=== PATIENT | female | born 1935 | race Caucasian/White ===

== ENCOUNTER 2016-04-07 17:51 | Emergency (ER) | payer MEDICARE, MEDICAID ==
[~2016-04-07] VITALS: Ht 170.2 cm; Wt 105.7 kg
[~2016-04-07 17:51] MED LIST: HYDROCODONE/ACE1 TA5 PO; LEVOTHYROXIN0.125 MG PO; LISINOPRIL2.5 MG PO; PRILOSEC20 M1 PO; XANAX 0.25MG0.25 MG PO
--- NOTE | 2016-04-07 18:05 | Emergency Room Report ---
History of Present Illness Time Seen by 180 Presenting Problem in Triage Pt arrived:Walked Presenting Problem:PT REPORTS SHE THINKS SHE HAS 4 BLOOD CLOTS IN R UPPER LEG. PT STATES HAS HX OF DVT AND SVT. Onset of symptoms date/time:04/04/16/ or onset unknown for:MEDICAL HX UNKNOWN Treatment Prior to Arrival: [employer] Provided by: Sepsis Risk Assessment: Temp: 97.9 B/P: 159/81 MAP: 107 Pulse: 61 Resp: 18 Recent fever? N Clinical Suspician of Infection? N Mental Status: 1 - Regular (Normal Baseline) Sepsis Risk:Low Sepsis Risk Have you (or family members/close friends) recently traveled outside the [place]? N If Yes, where/when: Have you had exposure to infectious disease within the past month? N TB? Other? Specify: Comment The patient complains of painful red lumps on her RIGHT anterior and medial thigh for the past couple of days. She says she has a history of blood clots. She thinks she has had both superficial and deep venous thromboses. She has no chest pain or shortness of breath. She called her PCP and they advised her to come to the emergency department. Her only current blood thinners aspirin. She says she just recently had blood drawn by her PCP in the past couple of weeks and her kidney function and liver function are normal. She says her platelet count was slightly low at 136. No history of reaction to heparin. ALLERGIES Coded Allergies: buspirone (From BuSpar) (Severe, SUICIDAL IDEATION 01/21/15) prednisone (Severe, INTERNAL ORGANOMEGALY 01/21/15) propoxyphene (From Darvocet-N) (Severe, RESPIRATORY DEPRESSION 01/21/15) tramadol (Severe, SEVERE WITHDRAWAL 01/21/15) Penicillins (Intermediate, I-HIVES 01/21/15) adhesive (Intermediate, I-RASH 01/21/15) bupropion (From Wellbutrin) (Intermediate, DEPRESSION 01/21/15) codeine (Intermediate, LEG PAIN, STOMACH CRMPS 01/21/15) cyclobenzaprine (From Flexeril) (Intermediate, MUSCLE SPASMS 01/21/15) diclofenac (From Voltaren) (Intermediate, I-HIVES 01/21/15) escitalopram (From Lexapro) (Intermediate, IRREGULAR HEART RATE, NUMBNESS, TINGLING 01/21/15) gabapentin (From Neurontin) (Intermediate, I-ITCHING, SLURRED SPEECH, HEAD PAIN 01/21/15) influenza virus vaccine, specific (influenza virus vacc,specific) (Intermediate, I-RASH 01/21/15) meloxicam (From Mobic) (Intermediate, SORES, ACNE, DIARRHEA 01/21/15) naproxen (From Naprosyn) (Intermediate, STOMACH PAIN, CRAMPS 01/21/15) promethazine (From Phenergan) (Intermediate, LOSS OF SPEECH, MUSCLE CONTRACTIONS , NAUSEA 01/21/15) rosuvastatin (From Crestor) (Intermediate, NECK, LEG, AND JOINT PAIN; NUMBNESS 01/21/15) simvastatin (From Vytorin) (Intermediate, TINGLING IN FEET & ANKLES; NUMBNESS ) tetanus and diphtheria toxoids (tetanus & diphtheria toxoids) (Intermediate, I- RASH, SWELLING, PAIN 01/21/15) venlafaxine (From Effexor) (Intermediate, DISORIENTED 01/21/15) venom-honey bee (bee venom (honey bee)) (Intermediate, SWELLING 01/21/15) paroxetine (From Paxil) (Mild, DRY MOUTH, UNCONTROLLED HICCUPS 01/21/15) sertraline (From Zoloft) (Mild, UNCONTROLLED HICCUPS 01/21/15) duloxetine (From Cymbalta) (01/21/15) ezetimibe (From Zetia) (01/21/15) honey (01/21/15) celecoxib (From Celebrex) (Mild, HEADACHE 01/21/15) diazepam (From Valium) (Mild, HYPERACTIVE 01/21/15) morphine (Mild, NA-NAUSEA/VOMITING; DISORIENTATION 01/21/15) Uncoded Allergies: ULTRAVIOLET LIGHT (07/08/10) CAT GUT SUTURES (07/08/10) Home Medications Reported Medications LISINOPRIL (Lisinopril) 1.25 MG PO DAILY Alprazolam (Xanax 0.25MG) 0.25 MG PO PRN PRN ANXIETY HYDROCODONE/ACETAMINOPHEN (Hydrocodon-Acetaminophn 10-325) 1 TAB PO Q8H OMEPRAZOLE MAGNESIUM (Prilosec 20MG) 20 MG PO DAILY Levothyroxine Sodium (Levothyroxine 0.125MG) 0.125 MG PO DAILY Montelukast Sodium 10 MG PO QHS #30 Loratadine (Claritin 10MG) 10 MG PO DAILY Trazodone Hcl (Trazodone HCl) 100 MG PO QHSP PRN SLEEP #30 TAB History Medical History General CAD? No Angina: No CT: No Hypertension? Yes Hyperlipidemia? Yes CHF? No COPD? No Asthma? Yes Anemia? Yes Hernia? Yes Thyroid Problems? Yes Hypothyroidism? Yes CVA? No Seizures? No Diabetes? No End Stage Renal Disease? No UTI? Yes Stones? No GB Disease: No Nephritic Syndrome? No Asplenia? No Hepatitis? No Sickle Cell Disease? No Arthritis? Yes Cataracts? No Glaucoma? No MRSA? No TB? No Cancer? No Immunization Hx DT/Tetanus NEVER Flu 2YRSorMore Pneumonia 1-4 YRS Surgical Hx Previous Surgery?Y TONSILLS 1956 C SECTION 1965 VEINS STRIPED BOTH LEGS D &C MULTIPLE PLASTIC SURGERY ULE R LEG SURGERY 1995 R KNEE REPLACED 1997 TORN MENISCUS AND L KNEE 2006 HIATEL HERNIA REPAIR TUMOR REMOVED FROM ABD R LEFT KNEE REPLACED 2007 Family History Family Hx Diabetes No CAD Yes Hypertension Yes Hyperlipidemia Yes Cancer No TB No Social History Alcohol Alcohol: No Additionial History Additional History Previous vascular studies at this facility reviewed. Normal LEFT lower extremity venous Doppler August 2007. RIGHT superficial venous thrombosis and negative for DVT bilaterally December 1999. Review of Systems All Other Systems Reviewed and Negative Constitutional denies fever Respiratory denies shortness of breath Cardiovascular denies chest pain Skin see HPI Physical Exam Vital Signs Vital Signs Date Time Temp Pulse Resp B/P Pulse O2 O2 Flow FiO2 Ox Delivery Rate 04/07 1757 97.9 61 18 159/81 93 General Appearance normal appearance Respiratory Status No: respiratory distress. Cardiovascular normal peripheral pulses Extremities there are 3 separate areas of erythema, tenderness, and palpable small cord on the RIGHT anterior and medial thigh. All of this is consistent with superficial venous thrombosis. She has some slight suprapatellar edema., there is no edema of the lower leg or calf tenderness. Normal neurovascular status distally. Neurologic alert, normal exam Medical Decision Making LABS/Meds/Orders Pt receiving controlled substance in ED? No Results/Orders Current Medication Orders Sig/Izabela Start time Last Medication Dose Route Stop Time Status Admin Enoxaparin Sodium 100 MG ONCE ONE 04/07 1830 DC SC 04/07 183 Progress - Venous ultrasound is not available at this hour. The patient will be given an injection of Lovenox and is to return in the morning for a venous Doppler. She is agreeable. Departure Departure Disposition DC Home or Self Care(routine) Clinical Impression Primary Impression: Acute superficial venous thrombosis of right lower extremity Condition STABLE Referrals Barry Aguiar MD (Family) Patient Instructions DI for Superficial Thrombophlebitis Additional Instructions Return to the hospital tomorrow morning to have venous Doppler performed. ED Critical Care Critical Care No at 1832
[2016-04-07] MEDS ORDERED: CLARITIN 10MG T10 MG PO (18:08)
[2016-04-07] MEDS ORDERED: MONTELUKAST SOD10 MG PO (18:08)
[2016-04-07] MEDS ORDERED: TRAZADONE HYDR100 MG PO (18:09)
[2016-04-07 18:50] VITALS: BP 159/81
== END 2016-04-07 18:51 | disposition home or self-care (01) ==
LOC: ER 17:51
DX: I82.811 Embolism and thrombosis of superficial veins of right lower extremity (principal); I10 Essential (primary) hypertension; Z86.718 Personal history of other venous thrombosis and embolism

== ENCOUNTER 2016-12-02 08:45 | Outpatient (CLI) | payer MEDICARE, MEDICAID ==
[2016-12-02] VITALS (18 sets, daily range): BP systolic 123–178; BP diastolic 43–108
[~2016-12-02] VITALS: Ht 170.2 cm; Wt 102.5 kg
[~2016-12-02 08:45] MED LIST changes: +CLARITIN 10MG T10 MG PO; +MONTELUKAST SOD10 MG PO; +TRAZADONE HYDR100 MG PO
[2016-12-02 09:46] LABS: HEMOGLOBIN 14.9 g/dL (12.2-16.2); LYMPH # 3.1 K/mm3 (0.7-4.5); LYMPH % 47.2 % (10-50.0)
[2016-12-09] MEDS ORDERED: LEVOTHYROXIN0.125 MG PO (11:03)
[2016-12-09] MEDS ORDERED: PRILOSEC20 M1 PO (11:03)
== END 2016-12-02 15:15 | disposition home or self-care (01) ==
LOC: COP 08:45
PROVIDERS: Internal Medicine
DX: C82.98 Follicular lymphoma, unspecified, lymph nodes of multiple sites (principal); Z51.11 Encounter for antineoplastic chemotherapy
CPT/HCPCS: J9310

== ENCOUNTER 2016-12-16 09:15 | Outpatient (CLI) | payer MEDICARE, MEDICAID ==
[~2016-12-16] VITALS: Ht 170.2 cm; Wt 103.9 kg
[2016-12-16] VITALS (16 sets, daily range): BP systolic 128–159; BP diastolic 71–104
[2016-12-16 09:49] LABS: HEMOGLOBIN 14.6 g/dL (12.2-16.2)
== END 2016-12-16 14:30 | disposition home or self-care (01) ==
LOC: COP 09:15
PROVIDERS: Internal Medicine
DX: C82.98 Follicular lymphoma, unspecified, lymph nodes of multiple sites (principal); Z51.11 Encounter for antineoplastic chemotherapy
CPT/HCPCS: J9310

== ENCOUNTER → 2017-01-18 | Outpatient (CLI) | payer MEDICARE, MEDICAID ==
[2017-01-18 10:19] LABS: BUN 17 mg/dL (7-18)
[2017-01-18 10:21] LABS: GFR (ESTIMATED) 60 ML/MIN (59-)
--- NOTE | 2017-01-19 07:02 | RADIOLOGY REPORT PS360 ---
CT SOFT TISSUE NECK W/CONTRAST INDICATION: Small lymphocytic lymphoma, adenopathy, axillary adenopathy, palpable nodules in the neck CERVICAL LYMPHADENOPATHY,NECK PAIN, SLL ORDERING PHYSICIAN: INDIO SIFUENTES APRN PATIENT AGE: 81 years COMPARISON: None TECHNIQUE: Axial images are obtained with 75 mL's of Isovue-370 . Sagittal and coronal reformatted images are reviewed as well. FINDINGS: BBs are placed in the areas of palpable abnormality. There is a 12 x 10 mm nodule along the posterior aspect of the right lobe of the parotid gland and may be due to a small lymph node. Smaller nodular densities are present just anterior to this region and there is a 7 mm solid appearing nodule in the superior aspect of the superficial lobe of the right parotid gland which may be due to a small lymph node. A 13 x 9 mm node is present for official to the right submandibular gland with smaller nodes present in this region as well. There is an 8 mm lymph node along the posterior neck on the right soft tissue density is present in the right supraclavicular region measuring 3.6 x 2.7 cm. Some of this is likely related to unopacified subclavian vein. Adenopathy in this region also suspected. Scattered small lymph nodes are present in the neck on the left as well with small nodes in the deep cervical chain and posterior to the left sternocleidomastoid The nasopharynx, orbits, and paranasal sinuses are unremarkable. No obvious thyroid mass. Lung apices are clear. IMPRESSION: 1. Scattered small cervical lymph nodes as detailed above. 2. Right supraclavicular adenopathy.
== END ==
LOC: RAD 09:56
PROVIDERS: Nurse Practitioner
DX: C83.00 Small cell B-cell lymphoma, unspecified site (principal); M54.2 Cervicalgia; R59.0 Localized enlarged lymph nodes
CPT/HCPCS: Q9967

== ENCOUNTER → 2017-02-03 | Outpatient (CLI) | payer MEDICARE, MEDICAID ==
[2017-02-03 09:59] LABS: HEMOGLOBIN 15.5 g/dL (12.2-16.2); LYMPH # 1.9 K/mm3 (0.7-4.5); LYMPH % 27.6 % (10-50.0)
[2017-02-03 10:11] LABS: BUN 17 mg/dL (7-18)
[2017-02-03 10:12] LABS: GFR (ESTIMATED) 60 ML/MIN (59-)
--- NOTE | 2017-02-04 13:35 | RADIOLOGY REPORT PS360 ---
MRI-C-SPINE W/WO Ordering Physician: Toni Clayton MD Patient Age: 81 years: Female HISTORY: LYMPHOMA, CERVICAL SPINE STENOSIS Patient had difficulty laying still of with motion artifact on majority of images.. Numbness and tingling right side of neck history of Hodgkin's lymphoma TECHNIQUE: Precontrast images Sagittal STIR, T1, T2, axial T1 and gradient echo. On 1.5T Siemens wide bore MRI. Postcontrast T1 sagittal and axial images following ProHance 17 mL 3-D MR myelogram image set obtained & performed on MRI workstation. Additional sagittal thin section T2 weighted dataset obtained from this latter acquisition as well (---76 CPT) Patient had difficulty laying still of with motion artifact on majority of images.. . COMPARISON :Soft tissue CT neck February 03, 2017 and 01/18/2017. FINDINGS The cranial cervical junction appears satisfactory. The cervical vertebra vertebral bodies appear intact with no osseous lesion evident. No enhancing lesions at the spinal axis C2/3 disc and cord intact. C3/4 disc intact. . Scant uncovertebral joint hypertrophy to the right with only minor foraminal encroachment. Facet hypertrophy bilateral. C4/5 disc intact. Bilateral facet hypertrophy. Scant just over 1 mm degenerative listhesis C4 on C5 more evident on corresponding CT neck from today .C5-C6. Mild disc space narrowing. Trace cervical spondylosis. C6/7. Degenerative disc space narrowing most notable at this level with minor 1.5 mm anterior listhesis of C6 on C7..,. Mild reactive endplate changes both sides of the narrowed disc. Cervical spondylosis with Mild diffuse posterior hypertrophic endplate hypertrophy and ridging indents the anterior aspect the thecal sac. C7/T1 disc intact. T1/T2 disc intact. T2/T3 scant disc bulge. Mild to moderate facet hypertrophy throughout spine. Moderate multilevel facet arthropathy/hypertrophy throughout the C-spine. Postcontrast imaging shows no focal lesions or abnormal areas of enhancement along the cervical spine are paraspinal structures evident on these images.. Again the apparent enlarged lymph node just posterior to the right clavicle noted here at the asymmetric Upper chest on the final image . IMPRESSION: Multilevel Degenerative disc changes and cervical spondylosis. Most notable degenerative disc changes at C6/7 this level Diffusely indents the anterior aspect thecal sac. It mild diffuse posterior hard disc & mildly indents indents thecal sac. Moderate Degenerative facet changes bilaterally also noted throughout The combination of above features does yield moderate multilevel foraminal encroachment but no significant central canal stenosis No lymphomatous involvement cervical spine on these images.. Cervical cord and thecal sac appear satisfactory in this regard
--- NOTE | 2017-02-09 16:04 | RADIOLOGY REPORT PS360 ---
CT SOFT TISSUE NECK W/CONTRAST Ordering Physician: Toni Clayton MD Patient Age: 81 years: Female HISTORY: FOLLICULAR LYMPHOMA NECK PAIN TECHNIQUE: Helical CT scanning performed through the cervical spine following 50 cc Isovue-370 and additional 50 cc with a given for the chest abdomen and pelvis CT study. From the helical acquired thin section sagittal and coronal reconstructions performed of the neck on the CT workstation COMPARISON : January 18, 2017 FINDINGS Again see the nodular appearing mass just posterior to the right clavicle this appears similar in height measuring up to 23 mm height, but I believe has decreased slightly in its transverse dimension. It does not appear larger, favor incrementally smaller. This node/mass appear to compress venous structures in this area-mainly the right subclavian vein with noted inhomogeneous contrast within subclavian vein at this level. Lack of contrast lateral to this towards right arm most likely physiologic flow patterns... Suggest follow-up duplex Doppler study of the right upper arm to further evaluate and as baseline... I would note this right retroclavicular jennifer mass is developed since 2016 CT chest & noted 01/18/2017 CT neck.. Ultrasound likely may have have difficulty in visualizing the mass as it may be obscured by the overlying right clavicle but the venous structures hopefully can be evaluated. Otherwise a previously observed lymph nodes scattered throughout the neck appears smaller.: Note posterior parotid previous measuring nearly 1 cm,, now measures 7.5 mm on today's study. Continuing inferiorly a node overlying the right submandibular gland is smaller is well previously 13 mm now measuring less than 10 mm AP. . generous venous structures throughout right neck also contribute to a variety of densities.. Tortuous external jugular branches. These are nicely enhanced today and clearly venous. Small node anterior to the left submandibular gland, 9.7 mm & unchanged as prior studies.. . Moderate lymphoid tissue on the base the tongue appears similar to previous studies, no significant change region of lingual tonsil. Moderate size palatine tonsils bilaterally as well. The tongue falls back to partial occluded the oral pharynx on the current images but I believe this is merely anatomic likely anatomic feature.. There is patient has sleep apnea symptoms?. Apices the lungs are clear. IMPRESSION: 1. Enlarged lymph node posterior to the right clavicle appears to have decreased incrementally overall size since 01/18/2017. ... However it does compress the right subclavian vein as discussed in text. If any swelling develops here at the right arm this May be a significant feature.. Would suggest venous duplex Doppler study of the right arm at this time baseline and to further evaluate flow pattern 2. The small node posterior right parotid and overlying the right submandibular gland are shown incremental decrease in size since January 18, 2017. No new nodes are seen in the neck...
--- NOTE | 2017-02-17 13:18 | RADIOLOGY REPORT PS360 ---
CT CHEST W/ CONTRAST COMPARISON: CT scan of chest 10/29/2016 HISTORY: Follow-up follicular lymphoma, neck pain TECHNIQUE: Multiaxial scans obtained from the thoracic inlet the hemidiaphragms after injection of IV contrast. Sagittal coronal reformats were evaluated as well. FINDINGS: . There has been interval decrease in size of the enlarged left axillary lymph nodes, for example the largest node seen previously abutting the chest wall measured 2.9 x 2.0 cm on the axial scan now measuring 2.0 x 1.3 cm in size. There are 2 borderline size nodes in right axilla which have shown slight interval decrease in size as well. Again there is no abnormal superior mediastinal or hilar lymphadenopathy. There is mild to moderate generalized cardio megaly without evidence of failure. There is no acute infiltrate and there are no noncalcified pulmonary nodules. Minimal interstitial fibrotic changes are seen in both lower lobes. There are multilevel degenerative changes of the thoracic spine. IMPRESSION: 1. Interval decrease in size of the enlarged left axillary lymph nodes and slight interval decreased size of the right axillary lymph nodes as well. Otherwise basically stable generalized cardio megaly and mild chronic basilar changes in the lungs
--- NOTE | 2017-02-17 13:33 | RADIOLOGY REPORT PS360 ---
CT ABD PELVIS W/ CONTRAST COMPARISON: CT scan abdomen pelvis 10/29/2016 HISTORY: Known follicular lymphoma follow-up TECHNIQUE: Multiaxial scans obtained from the hemidiaphragms the pelvic floor and were performed with IV and oral contrast. Sagittal coronal reformats were evaluated as well. FINDINGS: There is a small hiatal hernia. The lung bases are clear. There may been slight interval decrease in size of the spleen now measuring 13.9 cm are as previously it measured 15 cm anterior posterior dimension. The liver stomach pancreas and gallbladder appear grossly normal. Again noted is slight enlargement of the adrenal glands maintaining their adreniform shape suggesting mild adrenal hyperplasia. The kidneys are normal size and show symmetrical function both appearing normal. Again noted is a slightly enlarged node in the periaortic region right side which previous measured 12 mm and now measures 12.9 mm in diameter. The other small node adjacent to the screw border of the right kidney is stable and unchanged in size. The largest node in the left inguinal region which measured 2 cm x 1.6 cm previous exam now measures 1.9 x 1.4 cm. The small bowel is unremarkable. There is moderate scattered stool throughout the colon. Urinary bladder is partially decompressed. There are minimal postsurgical changes right groin. IMPRESSION: Retroperitoneal and left inguinal adenopathy, these nodes basically stable but showing slight interval decrease in size from the previous exam and there appears be no new abnormal lymphadenopathy. Other chronic findings as described above
== END ==
LOC: RAD 09:00
PROVIDERS: Nurse Practitioner
DX: C82.91 Follicular lymphoma, unspecified, lymph nodes of head, face, and neck (principal); M54.2 Cervicalgia
CPT/HCPCS: A9576; Q9967